=== PATIENT | male | born 1960 | race Caucasian/White ===

== ENCOUNTER 2025-05-30 16:24 | Inpatient (IN) ==
[2025-05-30 17:00] LABS: Hematocrit (blood only) 40.9 % (42.0-52.0); Hemoglobin 13.0 g/dl (14.0-18.0); Immature Granulocytes # (auto) 0.02 K/uL (0.01-0.20); Immature Granulocytes % (auto) 0.3 %; Mean Corpuscular Hemoglobin 29.9 pg (25.0-34.0); Mean Corpuscular Volume 94.0 fL (80.0-100.0); Platelet Count 197 K/uL (130-400); RDW Standard Deviation 54.5 fL (36.4-46.3); Red Blood Count 4.35 M/uL (4.70-6.10); White Blood Count 7.21 K/ul (4.8-10.8)
[2025-05-30 17:25] LABS: Alanine Aminotransferase 11.0 U/L (7-52); Albumin Globulin Ratio 1.1 (0.9-2); Alkaline Phosphatase 82.0 U/L (34-104); Anion Gap 8.0 (3-11); Bilirubin,Total 0.8 mg/dl (0.2-1.0); Blood Urea Nitrogen 19.0 mg/dl (6-23); Calcium 9.3 mg/dl (8.6-10.3); Carbon Dioxide 29.0 mmol/L (21-32); Chloride 104.0 mmol/L (98-107); Creatinine Clr Calc Pharmacy 88.6 ml/min; Globulin 3.7 gm/dl (2.5-4.0); Glucose 87.0 mg/dl (70-99(Fasting)); Potassium 4.0 mmol/L (3.5-5.1); Sodium 141.0 mmol/L (136-145); Total Protein 7.9 gm/dl (6.0-8.3)
--- NOTE | 2025-05-30 17:30 | XRay Report ---
Chest radiograph, one view History: Chest pain Comparison: 03/28/2025 Findings: Single AP view of the chest performed. No focal consolidation or pleural effusion. No pneumothorax. The cardiac silhouette is enlarged. There is increased prominence of the pulmonary vascularity. No evidence for lymphadenopathy. No visualized bony or soft tissue abnormality. Impression: Cardiomegaly. Increased prominence of the pulmonary vascularity suggesting pulmonary venous hypertension. Electronically signed by Hermes Montaño 05-30-2025 5:30 PM
[2025-05-30] MEDS: ASPIRIN 81 MG CHEW PO STA (18:10)
[2025-05-30] MEDS: FUROSEMIDE 40 MG/4 ML VIAL IV ONE (18:10)
--- NOTE | 2025-05-30 18:51 | Emergency Department Note ---
History of Present Illness General Chief Complaint: Abnormal Labs/Diagnostic Testing Stated Complaint: HEART PROBLEM, ABNORMAL LABS Time Seen by Provider: 05/30/25 16:51 History of Present Illness Provider Complaint: shortness of breath Onset (ago): week(s) (3) Consistency/Duration: + progressively worsening Maximum Pain Intensity: 0 Relieved By: + upright position Exacerbated By: + lying flat Associated symptoms: + orthopnea; no chest pain, no fever, no wheezing, no sputum production or no hemoptysis Home Medications Medication Instructions Recorded Confirmed Type acetaminophen 500 mg tablet 1,500 mg PO DIRECTED PRN Pain 05/30/25 05/30/25 History (Tylenol Extra Strength) albuterol sulfate 2.5 mg/3 mL 2.5 mg inhalation DIRECTED PRN 05/30/25 05/30/25 History (0.083 %) solution for nebulization Shortness Of Breath Or Wheezing celecoxib 200 mg capsule 200 mg PO DAILY 05/30/25 05/30/25 History folic acid 1 mg tablet 2 mg PO DAILY 05/30/25 05/30/25 History furosemide 20 mg tablet 20 mg PO DAILY 05/30/25 05/30/25 History ginkgo biloba 40 mg tablet 40 mg PO DAILY 05/30/25 05/30/25 History levothyroxine 100 mcg tablet 300 mcg PO DAILYBB 05/30/25 05/30/25 History levothyroxine 25 mcg tablet 25 mcg PO DAILYBB 05/30/25 05/30/25 History methotrexate sodium 2.5 mg tablet 17.5 mg PO WK 05/30/25 05/30/25 History turmeric 400 mg capsule 400 mg PO DAILY 05/30/25 05/30/25 History Allergies Allergy/AdvReac Type Severity Reaction Status Date / Time No Known Allergies Allergy Verified 05/30/25 18:29 Past Med/Surg History Problem List (Updated 05/30/25 @ 18:51 by Estuardo Moore MD) CHF exacerbation (Acute) Rheumatoid arthritis (Chronic) Hypothyroidism (Chronic) Acute blood loss anemia Acute respiratory failure Fever Leukocytosis Melena SOB (shortness of breath) Social History Smoking Status: Never smoker Preferred Language: Yoruba Feels Safe at Home: Yes Physical Exam 2 Vital Signs: Vital Signs - 24 hr 05/30/25 16:30 05/30/25 17:00 05/30/25 17:00 Temperature 36.9 C Temperature Source Temporal Artery Sc an Pulse Rate 94 H Pulse Rate from Sp O2 Sensor Respiratory Rate 18 Respiratory Effort / Characteristics Non-Labored Sponta neous Respiratory Depth Normal Respiratory Patter n Regular Blood Pressure 157/94 H 155/101 H 155/101 H Blood Pressure Sisi n 115 123 123 Pulse Oximetry 98 Oxygen Delivery Me thod Room Air Sepsis Recent Feve r Within 48 Hours No Sepsis New/Unexpla ined Change in Men anibal Status N/A Sepsis Action Take n by Nursing No Action Required 05/30/25 17:02 05/30/25 17:02 05/30/25 17:03 Temperature Temperature Source Pulse Rate 93 H 92 H Pulse Rate from Sp O2 Sensor 94 H Respiratory Rate 16 41 H Respiratory Effort / Characteristics Respiratory Depth Respiratory Patter n Blood Pressure Blood Pressure Sisi n Pulse Oximetry 97 97 100 Oxygen Delivery Me thod Room Air Room Air Sepsis Recent Feve r Within 48 Hours Sepsis New/Unexpla ined Change in Men anibal Status Sepsis Action Take n by Nursing 05/30/25 17:12 05/30/25 17:15 05/30/25 17:26 Temperature Temperature Source Pulse Rate 87 85 99 H Pulse Rate from Sp O2 Sensor 92 H 89 Respiratory Rate 35 H 31 H Respiratory Effort / Characteristics Respiratory Depth Respiratory Patter n Blood Pressure Blood Pressure Sisi n Pulse Oximetry 98 99 Oxygen Delivery Me thod Sepsis Recent Feve r Within 48 Hours Sepsis New/Unexpla ined Change in Men anibal Status Sepsis Action Take n by Nursing 05/30/25 17:30 05/30/25 17:30 05/30/25 17:30 Temperature Temperature Source Pulse Rate Pulse Rate from Sp O2 Sensor Respiratory Rate Respiratory Effort / Characteristics Respiratory Depth Respiratory Patter n Blood Pressure 132/90 132/90 132/90 Blood Pressure Sisi n 99 99 99 Pulse Oximetry Oxygen Delivery Me thod Sepsis Recent Feve r Within 48 Hours Sepsis New/Unexpla ined Change in Men anibal Status Sepsis Action Take n by Nursing 05/30/25 17:33 05/30/25 17:48 05/30/25 17:54 Temperature Temperature Source Pulse Rate 82 85 84 Pulse Rate from Sp O2 Sensor 84 86 86 Respiratory Rate 35 H 18 28 H Respiratory Effort / Characteristics Respiratory Depth Respiratory Patter n Blood Pressure Blood Pressure Sisi n Pulse Oximetry 98 99 98 Oxygen Delivery Me thod Sepsis Recent Feve r Within 48 Hours Sepsis New/Unexpla ined Change in Men anibal Status Sepsis Action Take n by Nursing 05/30/25 18:06 05/30/25 18:27 05/30/25 18:31 Temperature Temperature Source Pulse Rate 80 88 Pulse Rate from Sp O2 Sensor 78 82 Respiratory Rate 22 29 H Respiratory Effort / Characteristics Respiratory Depth Respiratory Patter n Blood Pressure 126/87 154/100 H Blood Pressure Sisi n 100 127 Pulse Oximetry 98 99 Oxygen Delivery Me thod Room Air Sepsis Recent Feve r Within 48 Hours Sepsis New/Unexpla ined Change in Men anibal Status Sepsis Action Take n by Nursing 05/30/25 18:31 Temperature Temperature Source Pulse Rate Pulse Rate from Sp O2 Sensor Respiratory Rate Respiratory Effort / Characteristics Respiratory Depth Respiratory Patter n Blood Pressure 154/100 H Blood Pressure Sisi n 127 Pulse Oximetry Oxygen Delivery Me thod Sepsis Recent Feve r Within 48 Hours Sepsis New/Unexpla ined Change in Men anibal Status Sepsis Action Take n by Nursing Physical Exam: Physical Exam GENERAL: oriented to person, place, and time. appears well-developed and well- nourished. HENT: Exam performed. - Head: Normocephalic and atraumatic. EYES: Conjunctivae and EOM are normal. Right eye exhibits no discharge. Left eye exhibits no discharge. No scleral icterus. NECK: Normal range of motion. Neck supple. No JVD present. CV: Normal rate, regular rhythm, normal heart sounds and intact distal pulses. 2+ pitting edema of the bilateral lower extremities. Palpable radial pulses bue. PULM/CHEST: Effort normal and breath sounds normal. No respiratory distress. No stridor. no wheezes. no rales. ABD: The abdomen is soft. There is no tenderness. NEURO: Motor and sensation grossly intact. SKIN: Skin is warm and dry. He is not diaphoretic. PSYCH: normal mood and affect. Behavior is normal. Judgment and thought content normal. Course Course 1650: The patient was evaluated in room B5. A complete history and physical exam was performed Cardiac monitoring: An order was placed for continuous cardiac monitoring. The monitor shows a rate of 90 with sinus rhythm interpreted by me 1727: Vital signs stable. Discussed case with the patient's referring political research scientist Dr. Lazar. Dr. Lazar states the patient had an echocardiogram done recently which showed an ejection fraction of 20% with mitral regurgitation and cardiomyopathy. She states that the patient has a new right bundle branch block. She recommends inpatient admission and diuresis. 1805: Vital signs stable. Labs show an elevated troponin and proBNP. Chest x- ray shows cardiomegaly with cephalization. Patient be treated with Lasix and admitted as recommended by Dr. Lazar. Administered Medications Discontinued Medications Aspirin (Aspirin 81 Mg Chew) 324 mg PO NOW STA Stop: 05/30/25 18:07 Last Admin: 05/30/25 18:10 Dose: 324 mg Documented By: QING Furosemide (Furosemide 40 Mg/4 Ml Vial) 40 mg IV ONE ONE Stop: 05/30/25 18:06 Last Admin: 05/30/25 18:10 Dose: 40 mg Documented By: QING Medical Decision Making Laboratory Data Attestation: I reviewed the patient's lab results. 05/30/25 16:34 05/30/25 16:34 Lab Results 05/30/25 05/30/25 Range/Units 16:34 16:40 WBC 7.21 (4.8-10.8) K/ul RBC 4.35 L (4.70-6.10) M/uL Hgb 13.0 L (14.0-18.0) g/dl Hct 40.9 L (42.0-52.0) % MCV 94.0 (80.0-100.0) fL MCH 29.9 (25.0-34.0) pg MCHC 31.8 L (32.0-36.0) g/dL RDW Std Deviation 54.5 H (36.4-46.3) fL RDW Coeff of Renan 15.9 H (11.5-14.5) % Plt Count 197 (130-400) K/uL MPV 9.5 (9.4-12.4) fL Immature Gran % (Auto) 0.3 % Neut % (Auto) 75.5 % Lymph % (Auto) 15.0 % [place] % (Auto) 7.4 % Eos % (Auto) 1.5 % Baso % (Auto) 0.3 % Neut # (Auto) 5.45 (1.40-6.50) K/uL Lymph # (Auto) 1.08 L (1.20-3.40) K/uL [place] # (Auto) 0.53 (0.11-0.59) K/uL Eos # (Auto) 0.11 (0.00-0.50) K/uL Baso # (Auto) 0.02 (0.00-0.20) K/uL Immature Gran # (Auto) 0.02 (0.01-0.20) K/uL PT Cancelled INR Cancelled APTT Cancelled PTT Ratio Cancelled Sodium 141 (136-145) mmol/L Potassium 4.0 (3.5-5.1) mmol/L Chloride 104 (98-107) mmol/L Carbon Dioxide 29 (21-32) mmol/L Anion Gap 8 (3-11) BUN 19 (6-23) mg/dl Creatinine 0.97 (0.6-1.4) mg/dl Est Cr Clr Drug Dosing 88.6 ml/min eGFR 86.63 BUN/Creatinine Ratio 19.6 (10-20) Glucose 87 (70-99(Fasting)) mg/dl Calcium 9.3 (8.6-10.3) mg/dl Total Bilirubin 0.8 (0.2-1.0) mg/dl AST 17 (13-39) U/L ALT 11 (7-52) U/L Alkaline Phosphatase 82 (34-104) U/L Troponin I High Sens 39.7 H (0-20) pg/ml B-Natriuretic Peptide 630 H (0-100) pg/ml Total Protein 7.9 (6.0-8.3) gm/dl Albumin 4.2 (3.4-5.0) gm/dl Globulin 3.7 (2.5-4.0) gm/dl Albumin/Globulin Ratio 1.1 (0.9-2) Imaging Data Attestation: I personally reviewed and interpreted this imaging study as follows: My Impression: Chest x-ray: Cardiomegaly with cephalization Radiologist's Impression: Chest X-Ray 05/30/25 16:34 Chest radiograph, one view History: Chest pain Comparison: 03/28/2025 Findings: Single AP view of the chest performed. No focal consolidation or pleural effusion. No pneumothorax. The cardiac silhouette is enlarged. There is increased prominence of the pulmonary vascularity. No evidence for lymphadenopathy. No visualized bony or soft tissue abnormality. Impression: Cardiomegaly. Increased prominence of the pulmonary vascularity suggesting pulmonary venous hypertension. Electronically signed by Montaño Poloanthony 05-30-2025 5:30 PM ECG Data Attestation: I personally reviewed and interpreted this ECG as follows: Interpretation: Sinus rhythm with a rate of 91. NE 218 QRS [address] elevation or ST depression. Right bundle branch block present. [facility] Narrative 1651: The patient was evaluated in room B5. A complete history and physical exam was performed Cardiac monitoring: An order was placed for continuous cardiac monitoring. The monitor shows a rate of 90 with sinus rhythm interpreted by me 1727: Vital signs stable. Discussed case with the patient's referring political research scientist Dr. Lazar. Dr. Lazar states the patient had an echocardiogram done recently which showed an ejection fraction of 20% with mitral regurgitation and cardiomyopathy. She states that the patient has a new right bundle branch block. She recommends inpatient admission and diuresis. 180: Vital signs stable. Labs show an elevated troponin and proBNP. Chest x- ray shows cardiomegaly with cephalization. Patient be treated with Lasix and admitted as recommended by Dr. Lazar. Impression & Plan CHF exacerbation Discharge Plan Visit Data Chief Complaint: Abnormal Labs/Diagnostic Testing Stated Complaint: HEART PROBLEM, ABNORMAL LABS ED Provider: Estuardo Moore Discharge Problem: CHF exacerbation Patient Disposition: Admitted As Inpatient Condition: Fair Forms Stand Alone Forms: [facility] [place] [employer] Prescriptions Prescriptions: No Action acetaminophen [Tylenol Extra Strength] 500 mg Tablet 1,500 mg PO DIRECTED PRN (Reason: Pain) ginkgo biloba [Ginkoba] 40 mg Tablet 40 mg PO DAILY Rx Instructions: give with meal/snack turmeric 400 mg Capsule 400 mg PO DAILY celecoxib 200 mg capsule 200 mg PO DAILY albuterol sulfate 2.5 mg /3 mL (0.083 %) solution for nebulization 2.5 mg inhalation DIRECTED PRN (Reason: Shortness Of Breath Or Wheezing) levothyroxine 25 mcg tablet 25 mcg PO DAILYBB Rx Instructions: TOTAL DOSE 325 MCG--TAKES WITH 3-100 MCG TABS. levothyroxine 100 mcg tablet 300 mcg PO DAILYBB Rx Instructions: TOTAL DOSE 325 MCG--TAKES WITH 25 MCG TAB. methotrexate sodium 2.5 mg tablet 17.5 mg PO WK Rx Instructions: SUNDAYS folic acid 1 mg tablet 2 mg PO DAILY furosemide 20 mg tablet 20 mg PO DAILY Referrals Referrals: Trisha Horvath MD [Primary Care Provider] -
[2025-05-30 18:59] LABS: INR 1.1 (0.9-1.1); Partial Thromboplastin Time 34 Seconds (21-31); Prothrombin Time 11.5 Seconds (9.0-12.0)
--- NOTE | 2025-05-30 18:59 | History & Physical Report ---
Date of Service May 30, 2025 Assessment & Plan (1) Acute systolic CHF (congestive heart failure): Plan: Parenteral Lasix diuresis. Cardiology consultation. Telemetry. Serial chest x-ray (2) Left ventricular dysfunction: Plan: As seen on outpatient cardiac echo. Telemetry. Cardiology consultation. (3) Troponin level elevated: Plan: Probably related to CHF. He denies chest pain. No acute EKG changes (4) Hypothyroidism: Plan: Stable. Continue thyroid replacement (5) Rheumatoid arthritis: Plan: Stable. Continue current medical management Plan Hopeful discharge to home later this week History of Present Illness Chief Complaint: Shortness of breath Primary Care Provider: Trisha Horvath MD 65-year-old white male with gradual onset of shortness of breath with exertion and orthopnea. He underwent cardiac echo on an outpatient basis and was seen to have left ventricular systolic dysfunction along with congestive heart failure and sent to the hospital for admission. He denies chest pain. EKG reveals no acute changes. BNP is elevated and initial troponin is mildly elevated. IV Lasix has been started and he is admitted for further evaluation and treatment along with cardiology evaluation. Allergies Allergy/AdvReac Type Severity Reaction Status Date / Time No Known Allergies Allergy Verified 05/30/25 18:29 Home Medications Medication Instructions Recorded Confirmed Type acetaminophen 500 mg tablet 1,500 mg PO DIRECTED PRN Pain 05/30/25 05/30/25 History (Tylenol Extra Strength) albuterol sulfate 2.5 mg/3 mL 2.5 mg inhalation DIRECTED PRN 05/30/25 05/30/25 History (0.083 %) solution for nebulization Shortness Of Breath Or Wheezing celecoxib 200 mg capsule 200 mg PO DAILY 05/30/25 05/30/25 History folic acid 1 mg tablet 2 mg PO DAILY 05/30/25 05/30/25 History furosemide 20 mg tablet 20 mg PO DAILY 05/30/25 05/30/25 History ginkgo biloba 40 mg tablet 40 mg PO DAILY 05/30/25 05/30/25 History levothyroxine 100 mcg tablet 300 mcg PO DAILYBB 05/30/25 05/30/25 History levothyroxine 25 mcg tablet 25 mcg PO DAILYBB 05/30/25 05/30/25 History methotrexate sodium 2.5 mg tablet 17.5 mg PO WK 05/30/25 05/30/25 History turmeric 400 mg capsule 400 mg PO DAILY 05/30/25 05/30/25 History Past Med/Surg History Problem List (Updated 05/30/25 @ 18:58 by Dung Keating MD) Acute systolic CHF (congestive heart failure) Troponin level elevated Left ventricular dysfunction Acute diastolic (congestive) heart failure CHF exacerbation (Acute) Rheumatoid arthritis (Chronic) Hypothyroidism (Chronic) Acute blood loss anemia Acute respiratory failure Fever Leukocytosis Melena SOB (shortness of breath) Social History Smoking Status: Never smoker Preferred Language: Swazi Feels Safe at Home: Yes Review of Systems 2 Review of Systems: Constitutionalno fever or chills ENTno blurred vision, no double vision, no epistaxis, no sore throat Respiratoryno cough, no wheezing. Dyspnea on exertion Cardiacno palpitations, no chest pain, no syncope Karmen nausea, vomiting, diarrhea, melena, hematochezia GUno urinary retention, no urinary incontinence, no dysuria, no hematuria Musculoskeletalno joint pain, no muscle tenderness Skinno bruising, no rashes, no pruritus Neurono isolated weakness, no paresthesia, no weakness Psychno depression, no anxiety Physical Exam 2 Physical Exam: General-alert and oriented x3, no fever, no chills HEENT-head atraumatic and normocephalic, pupils equal and reactive to light, extraocular muscles intact Neck-no lymphadenopathy or thyromegaly, trachea midline Chest-bibasilar inspiratory rales. No wheezing. No rhonchi. Cardiac-regular rate and rhythm, normal S1 and S2 Abdomen-normal bowel sounds, no hepatosplenomegaly Extremities-no cyanosis, clubbing, or edema Neuro-cranial nerves II through XII intact, motor and sensory function within normal limits, strength symmetrical, no focal deficits Psych-normal affect, normal mood Results & Data Results & Data Vital Signs (Past 12 Hours) Vital Signs Temp Pulse Resp BP Pulse Ox O2 Del Method 05/30/25 18:31 154/100 H 05/30/25 18:31 154/100 H 05/30/25 18:27 88 29 H 99 05/30/25 18:06 80 22 126/87 98 Room Air 05/30/25 17:54 84 28 H 98 05/30/25 17:48 85 18 99 05/30/25 17:33 82 35 H 98 05/30/25 17:30 132/90 05/30/25 17:30 132/90 05/30/25 17:30 132/90 05/30/25 17:26 99 H 05/30/25 17:15 85 31 H 99 05/30/25 17:12 87 35 H 98 05/30/25 17:03 92 H 41 H 100 05/30/25 17:02 93 H 16 97 Room Air 05/30/25 17:02 97 Room Air 05/30/25 17:00 155/101 H 05/30/25 17:00 155/101 H 05/30/25 16:30 36.9 C 94 H 18 157/94 H 98 Room Air Laboratory Results 05/30/25 16:34 05/30/25 16:34 Code Status & VTE Plan Code Status Full code PG Care Time/CCT Total # of Minutes Spent Total Time Spent with Patient: Total time spent is greater than 50% in coordination of care (as documented) at patient's floor/unit and/or counseling patient: Coding Level of Care Code 99022 INT INP/OBS CARE 3/75MIN Diagnoses Acute systolic CHF (congestive heart failure) I50.21 Left ventricular dysfunction I51.9 Troponin level elevated R79.89 Hypothyroidism E03.9 Rheumatoid arthritis M06.9
[2025-05-30] MEDS ORDERED: ONDANSETRON INJ 2 MG/ML 2 ML VIAL IV PRN (21:45)
[2025-05-30] MEDS: HEPARIN SOD 5,000 UNIT/0.5 ML VIAL SQ SCH (22:12)
[2025-05-30] MEDS: FUROSEMIDE 40 MG/4 ML VIAL IV SCH (22:12)
[2025-05-30] MEDS ORDERED: 0.2 MICRON FILTER SET 1 EACH IV ONE (22:44)
--- NOTE | 2025-05-30 22:55 | Communication Note ---
Date of Service: May 30, 2025 Nurse alerted me around 22:20 about pt rhythm change. EKG ordered; afib RVR noted. Went tot bedside to assess pt. He states he has been having sporadic epi sodes of anxiety and shortness of breath at home for at least the last few months and states that this episode feels similar to the episodes he gets at home. He states he 'maybe" had a hx of afib after his first heart attack and states he thinks he was on coumadin for a time but has not been on that in years. Pt denies chest pain or SOB at present but does note some sudden anxiety which seem to correspond time-oneil with when he converted into afib on telemetry. BP stable, rates 130-140s. On auscultation, pt is in irregularly irregular rhythm. Pt already on heparin. Given report of low EF and CHF (which is what pt was admitted for), will do a dose of amiodarone for permissive rate control. Electrolytes reviewed; k 4.0 earlier today. Will add mag level with repeat trop and will trend troponin throughout the night until it peaks. Resident Activity Tracking Resident Involvement: Resident Care Provided Care Provided: Adult Hospital Medicine
[2025-05-30] MEDS: AMIODARONE / D5W 150 MG/100 ML BAG IV STA (23:00)
[2025-05-30 23:25] LABS: Magnesium 1.9 mg/dl (1.7-2.4)
[2025-05-31] MEDS ORDERED: 0.2 MICRON FILTER SET 1 EACH IV ONE (01:27)
[2025-05-31] MEDS: AMIODARONE / D5W 150 MG/100 ML BAG IV STA ×2 (01:34→06:21)
[2025-05-31] MEDS: ACETAMINOPHEN 325 MG TAB PO PRN (01:42)
[2025-05-31 04:15] LABS: Anion Gap 7.0 (3-11); Blood Urea Nitrogen 20.0 mg/dl (6-23); Calcium 9.2 mg/dl (8.6-10.3); Carbon Dioxide 29.0 mmol/L (21-32); Chloride 103.0 mmol/L (98-107); Creatinine Clr Calc Pharmacy 82.0 ml/min; Glucose 102.0 mg/dl (70-99(Fasting)); Potassium 3.9 mmol/L (3.5-5.1); Sodium 139.0 mmol/L (136-145)
[2025-05-31] MEDS ORDERED: STAT IV Infusion **Titration per Protocol STA (05:58)
[2025-05-31] MEDS ORDERED: 0.2 MICRON FILTER SET 1 EACH IV STA (05:58)
[2025-05-31] MEDS ORDERED: AMIODARONE IV BOLUS & DRIP IV STA (05:58)
[2025-05-31] MEDS: LEVOTHYROXINE SODIUM 150 MCG TABLET PO SCH (06:16)
[2025-05-31] MEDS: LEVOTHYROXINE SODIUM 25 MCG TABLET PO SCH (06:16)
[2025-05-31] MEDS: AMIODARONE / D5W 360 MG/200 ML BAG IV ONE (06:32)
[2025-05-31] MEDS: CeleBREX 200 MG CAP PO SCH (07:38)
[2025-05-31] MEDS: FOLIC ACID 1 MG TAB PO SCH (07:38)
[2025-05-31 09:28] LABS: Thyroid Stimulating Hormone 0.017 uIu/ml (0.300-4.500)
[2025-05-31] MEDS: HEPARIN SOD (PORCINE) 1000 UNIT/ML IV ONE (10:02)
[2025-05-31] MEDS: HEPARIN 25000 UNIT/500 ML D5W 25,000 UNITS/500 ML BAG IV SCH (10:03)
[2025-05-31] MEDS: Heparin IV Adult Wt-Based Standard w/ INITIAL Bolus Protocol IV STA (10:04)
--- NOTE | 2025-05-31 10:34 | Cardiology Consultation ---
Date of Consultation May 31, 2025 Assessment & Plan (1) Acute systolic CHF (congestive heart failure): (2) Troponin level elevated: (3) Coronary artery disease: Plan It's possible that Mr. Mcqueen has been coming and going in afib for some time with poorly controlled rates contributing to his reduced EF. He was started on amiodarone last night which he should continue. I've started him on a heparin drip for now. He'll need to be placed on a DOAC prior to discharge. His rates are still tachycardic and I will add metoprolol to his po medications. He has mildly elevated troponin which peaked at 90 and may just be secondary to demand ischemia secondary to his rapid rate. He is not having any angina. However, given his severely reduced EF and multiple wall motion abnormalities, he should be cathed. Idiscussed the risk benefits of cardiac catheterization.Risks including but not limited tobleeding or infection at the puncture site, damage to the patient's radial or femoral artery,risk of contrast-induced nephropathy, allergic reaction to contrastand aone in ten thousand risk of heart attack, stroke, or . The patient understands the risksand wishes to proceed. I have placed a consult for Dr. Mon. He will need to have GDMT maximized and if no improvement in his EF, he would likely benefit from a BiV/ICD. Once he is better diuresed, he should be started on Entresto. IV furosemide should be continued until his creat bumps. His blood pressure is controlled. 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 Yesterday he came in to establish with Dr. Lazar for cough and shortness of breath and recent echocardiogram demonstrating an ejection fraction of 20%. He has a history of cardiomyopathy and heat failure with an EF of 30%, improved to 40% in 2017. He has a history of prior [place], presumably LAD, in 2012 treated at [facility] which was his last cardiac catheterization. Since then he has only been taking aspirin, Lasix, and thyroid medication. About 2 months ago he demonstrated a wide bundle branch block on his EKG. He does have a history of A-fib diagnosed in 2016 when sick with pneumonia. He was on anticoagulation but subsequently had a GI bleed that year. EGD at the time showed only esophagitis and hiatal hernia. AC was stopped. He started feeling short of breath about 2 months ago. He feels a lot of distention in his belly and lost 40-50 pounds in that time because he just had no appetite due to the belly pressure. Not much edema in his lower extremities. No chest discomfort. He cannot feel being afib. Pmhx: CAD, systolic heart failure, GI bleed, hld, Family: Mother with history of TN, mother and sister with htn and diabetes Allergies Allergy/AdvReac Type Severity Reaction Status Date / Time No Known Allergies Allergy Verified 05/30/25 18:29 Home Medications Medication Instructions Recorded Confirmed Type acetaminophen 500 mg tablet 1,500 mg PO DIRECTED PRN Pain 05/30/25 05/30/25 History (Tylenol Extra Strength) albuterol sulfate 2.5 mg/3 mL 2.5 mg inhalation DIRECTED PRN 05/30/25 05/30/25 History (0.083 %) solution for nebulization Shortness Of Breath Or Wheezing celecoxib 200 mg capsule 200 mg PO DAILY 05/30/25 05/30/25 History folic acid 1 mg tablet 2 mg PO DAILY 05/30/25 05/30/25 History furosemide 20 mg tablet 20 mg PO DAILY 05/30/25 05/30/25 History ginkgo biloba 40 mg tablet 40 mg PO DAILY 05/30/25 05/30/25 History levothyroxine 100 mcg tablet 300 mcg PO DAILYBB 05/30/25 05/30/25 History levothyroxine 25 mcg tablet 25 mcg PO DAILYBB 05/30/25 05/30/25 History methotrexate sodium 2.5 mg tablet 17.5 mg PO WK 05/30/25 05/30/25 History turmeric 400 mg capsule 400 mg PO DAILY 05/30/25 05/30/25 History Patient History Social History Smoking Status: Never smoker Hx Alcohol Use: No Hx Substance Use: No Preferred Language: Japanese Communication Ability: Effective Security Shift Supervisor Required: No Beliefs That Will Affect Care: None Current Living Situation: Significant Other Feels Safe at Home: Yes Assistive Devices: None Review of Systems Review of Systems: All systems reviewed & are unremarkable except as noted in HPI & below Physical Exam Constitutional: WD/WN, vitals as above Respiratory: normal respiratory effort, lungs clear to auscultation Cardiovascular: Rate/Rhythm: + abnormal rate and + abnormal rhythm Heart Sounds: normal S1 and normal S2 Extremities: + edema (trace lower extremity) Skin: no rashes, warm and dry Neurologic: moves all extremities and awake Psychiatric: A+Ox3, euthymic affect Results & Data Vital Signs (Past 12 Hours) Vital Signs Temp Pulse Pulse Pulse Resp BP Pulse Ox 05/31/25 08:00 123 H 05/31/25 07:04 36.4 C L 107 H 24 112/80 98 05/31/25 03:02 36.5 C 85 17 108/73 99 05/30/25 22:37 05/30/25 22:36 36.5 C 133 H 22 129/96 96 O2 Del Method 05/31/25 08:00 05/31/25 07:04 Room Air 05/31/25 03:02 Room Air 05/30/25 22:37 Room Air 05/30/25 22:36 Room Air Diagnostic Findings Echo 05/30/2025 at [facility] Summary 1. Technically difficult study due to patient body habitus; Successfully enhanced with Definity contrast per lab protocol for better endocardial definition. 2. Severely dilated left ventricle. 3. Akinesis of the mid to distal anteroseptal, mid to distal anterior, mid to distal anterolateral, mid to distal inferolateral, mid to distal inferior and mid to distal inferoseptal quintero. 4. Hypokinesis of the basal inferoseptal wall. 5. Severely reduced systolic function, ejection fraction calculated by Biplane Cochran's method 20-25%. 6. Mild concentric left ventricular hypertrophy. 7. Grade II diastolic dysfunction of the left ventricle (pseudonormal filling pattern) with elevated left atrial pressure. 8. Moderately dilated right ventricle with reduced systolic function; TAPSE was 0.7 cm. 9. Moderately dilated left atrium size. 10. Dilated right atrium. 11. The prox ascending aorta is dilated measuring 3.8 cm with an index of 1.75 cm/m2. 12. Mildly calcified, trileaflet aortic valve without stenosis. Trace aortic valve insufficiency. 13. Moderate +2-3 mitral valve regurgitation. 14. Mild tricuspid regurgitation. 15. Top normal estimated pulmonary artery pressures, estimated PASP is 33 mmHg. 16. Mild pulmonary regurgitation. 17. Elevated estimated pulmonary arterial mean pressure is 32 mmHg. 18. No prior studies for comparison. (3) Coronary artery disease Associated angina: without angina Coronary Disease-Associated Artery/Lesion type: [place] artery
--- NOTE | 2025-05-31 10:48 | Hospitalist Progress Note ---
Date of Service May 31, 2025 Assessment & Plan (1) Acute systolic CHF (congestive heart failure): Plan: Acute on chronic. Continue parenteral Lasix diuresis. Good diuretic response thus far. Cardiology consultation and recommendations appreciated. He will undergo repeat left heart catheterization tomorrow, June 01. Telemetry. Serial chest x-ray (2) Left ventricular dysfunction: Plan: As seen on outpatient cardiac echo. Ejection fraction is reduced to around 20%. He has a previous history of coronary artery disease and myocardial infarction. Telemetry. (3) Troponin level elevated: Plan: He denies chest pain. No acute EKG changes. Telemetry. Probably related to CHF. (4) Hypothyroidism: Plan: Continue thyroid replacement. Thyroid profile ordered and pending (5) Rheumatoid arthritis: Plan: Stable. Continue current medical management Plan Anticipate eventual discharge to home within the next 2 to 3 days. Admission and Anticipated Discharge Date Admission Date: May 30, 2025 Subjective Alert and oriented. No acute distress. Apparently he developed recurrent atrial fibrillation late last evening and is now on a heparin drip and amiodarone drip. Appreciate cardiology consultation. He will undergo left heart catheterization tomorrow, June 01. His most recent outpatient cardiac echo revealed ejection fraction of approximately 20%. He does have a history of coronary artery disease and previous myocardial infarction along with a history of systolic congestive heart failure. Troponin level is trending upward but still less than 100. He denies chest pain. He will undergo left heart catheterization tomorrow, June 01 Review of Systems 2 Review of Systems: Constitutionalno fever or chills ENTno blurred vision, no double vision, no epistaxis, no sore throat Respiratoryno cough, no wheezing. Dyspnea on exertion Cardiacno palpitations, no chest pain, no syncope Karmen nausea, vomiting, diarrhea, melena, hematochezia GUno urinary retention, no urinary incontinence, no dysuria, no hematuria Musculoskeletalno joint pain, no muscle tenderness Skinno bruising, no rashes, no pruritus Neurono isolated weakness, no paresthesia, no weakness Psychno depression, no anxiety Physical Exam 2 Physical Exam: General-alert and oriented x3, no fever, no chills HEENT-head atraumatic and normocephalic, pupils equal and reactive to light, extraocular muscles intact Neck-no lymphadenopathy or thyromegaly, trachea midline Chest-bibasilar inspiratory rales. No wheezing. No rhonchi. Cardiac-irregular rhythm. Controlled rate. Normal S1 and S2 Abdomen-normal bowel sounds, no hepatosplenomegaly Extremities-no cyanosis, clubbing, or edema Neuro-cranial nerves II through XII intact, motor and sensory function within normal limits, strength symmetrical, no focal deficits Psych-normal affect, normal mood Results & Data Results & Data Vital Signs (Past 12 Hours) Vital Signs Temp Pulse Pulse Pulse Resp BP Pulse Ox 05/31/25 08:00 123 H 05/31/25 07:04 36.4 C L 107 H 24 112/80 98 05/31/25 03:02 36.5 C 85 17 108/73 99 O2 Del Method 05/31/25 08:00 05/31/25 07:04 Room Air 05/31/25 03:02 Room Air Laboratory Results 05/30/25 16:34 05/31/25 03:46 PG Care Time/CCT Total # of Minutes Spent Total Time Spent with Patient: Total time spent is greater than 50% in coordination of care (as documented) at patient's floor/unit and/or counseling patient: Coding Level of Care Code 12431 SUB INP/OBS CARE 3/50MIN Diagnoses Acute systolic CHF (congestive heart failure) I50.21 Left ventricular dysfunction I51.9 Troponin level elevated R79.89 Hypothyroidism E03.9 Rheumatoid arthritis M06.9
[2025-05-31] MEDS: AMIODARONE / D5W 360 MG/200 ML BAG IV SCH (12:00)
[2025-05-31] MEDS: METOPROLOL SUCC 25MG EXT REL TAB PO SCH (12:52)
[2025-05-31 17:19] LABS: ANTI-Xa, UFH(UnfractionatedHep 0.64 IU/ml (0.3-0.7)
[2025-06-01 07:14] LABS: Anion Gap 9.0 (3-11); Blood Urea Nitrogen 26.0 mg/dl (6-23); Calcium 9.2 mg/dl (8.6-10.3); Carbon Dioxide 29.0 mmol/L (21-32); Chloride 99.0 mmol/L (98-107); Creatinine Clr Calc Pharmacy 78.9 ml/min; Glucose 108.0 mg/dl (70-99(Fasting)); Potassium 4.0 mmol/L (3.5-5.1); Sodium 137.0 mmol/L (136-145)
--- NOTE | 2025-06-01 07:29 | XRay Report ---
EXAM: XR chest 1V portable CLINICAL HISTORY: CHF (Congestive heart failure). TECHNIQUE: An X-ray image of the chest is obtained in AP projection. COMPARISON: With the prior study dated 05/30/2025. FINDINGS: Pulmonary Parenchyma: Lungs are clear bilaterally. No evidence of consolidation, collapse, or focal opacities. No pulmonary nodules are identified. No evidence of left pleural effusion or pleural thickening. Blunting of the right costophrenic angle could be due to small effusion. Heart and Mediastinum: Unchanged cardiomegaly. No mediastinal widening or masses. No hilar or mediastinal lymphadenopathy. Bony Thorax: Bony thorax appears intact without fractures or deformities. Soft Tissues: Soft tissues overlying the chest wall are unremarkable. IMPRESSION: 1. Unchanged cardiomegaly. 2. Unchanged blunting of the right costophrenic angle could be due to small effusion. 3. No acute cardiopulmonary abnormalities are identified. Electronically signed by Guillermo Bonilla 06-01-2025 07:28 AM
--- NOTE | 2025-06-01 07:50 | Cardiology Progress Note ---
Date of Service June 01, 2025 Assessment & Plan (1) Acute systolic CHF (congestive heart failure): (2) Troponin level elevated: (3) Coronary artery disease: Plan It's possible that Mr. Mcqueen has been coming and going in afib for some time with poorly controlled rates contributing to his reduced EF. He was started on amiodarone last night which he should continue. I've started him on a heparin drip for now. He'll need to be placed on a DOAC prior to discharge. His rates are still tachycardic and I will add metoprolol to his po medications. He has mildly elevated troponin which peaked at 90 and may just be secondary to demand ischemia secondary to his rapid rate. He is not having any angina. However, given his severely reduced EF and multiple wall motion abnormalities, he should be cathed. Idiscussed the risk benefits of cardiac catheterization.Risks including but not limited tobleeding or infection at the puncture site, damage to the patient's radial or femoral artery,risk of contrast-induced nephropathy, allergic reaction to contrastand aone in ten t housand risk of heart attack, stroke, or . The patient understands the risksand wishes to proceed. I have placed a consult for Dr. Mon. He will need to have GDMT maximized and if no improvement in his EF, he would likely benefit from a BiV/ICD. Once he is better diuresed, he should be started on Entresto. IV furosemide should be continued until his creat bumps. His blood pressure is controlled. Admission and Anticipated Discharge Date Admission Date: May 30, 2025 Subjective Alert and oriented. No acute distress. Apparently he developed recurrent atrial fibrillation late last evening and is now on a heparin drip and amiodarone drip. Appreciate cardiology consultation. His most recent outpatient cardiac echo revealed ejection fraction of approximately 20%. He does have a history of coronary artery disease and previous myocardial infarction along with a history of systolic congestive heart failure. Troponin level is trending upward but still less than 100. He denies chest pain. he is to undergo cardiac catheterization later today depending on the results further recommendations will follow-up Review of Systems Review of Systems: All systems reviewed & are unremarkable except as noted in HPI & below Results & Data Vital Signs (Past 12 Hours) Vital Signs Temp Pulse Pulse Resp BP BP Pulse Ox 06/01/25 07:10 36.6 C 67 18 112/76 99 06/01/25 03:00 36.5 C 92 H 16 116/68 97 05/31/25 23:14 36.3 C L 82 16 114/70 97 05/31/25 22:03 90 O2 Del Method 06/01/25 07:10 Room Air 06/01/25 03:00 Room Air 05/31/25 23:14 Room Air 05/31/25 22:03 Laboratory Results Abnormal lab results 05/31/25 06/01/25 Range/Units 08:36 06:07 BUN 26 H (6-23) mg/dl BUN/Creatinine Ratio 24.1 H (10-20) Glucose 108 H (70-99(Fasting)) mg/dl Troponin I High Sens 84.1 H* (0-20) pg/ml TSH 0.017 L (0.300-4.500) uIu/ml Free T4 2.51 H (0.61-1.60) ng/dl Medications Administered Current Inpatient Medications Acetaminophen (Acetaminophen 325 Mg Tab) 650 mg PO Q6H PRN PRN Reason: Fever or headache Stop: 06/29/25 21:44 Last Admin: 05/31/25 01:42 Dose: 650 mg Aspirin (Aspirin 81 Mg Ectab) 81 mg PO QAM [facility] Stop: 07/01/25 08:59 Folic Acid (Folic Acid 1 Mg Tab) 2 mg PO DAILY JUANA Stop: 06/30/25 08:59 Last Admin: 05/31/25 07:38 Dose: 2 mg Furosemide (Furosemide 40 Mg/4 Ml Vial) 40 mg IV BID JUANA Stop: 06/29/25 21:44 Last Admin: 05/31/25 20:35 Dose: 40 mg Amiodarone HCl/Dextrose (Nexterone / D5w) 360 mg in 200 mls @ 16.667 mls/hr IV .Q12H JUANA Stop: 06/30/25 11:59 Last Admin: 06/01/25 01:07 Dose: 0.5 mg/min, 16.7 mls/hr Heparin Sodium/Dextrose (Heparin 64265 Unit/500 Ml D5w) 25,000 units in 500 mls @ 29 mls/hr IV .[id number] JUANA; Protocol Stop: 06/30/25 08:29 Last Titration: 06/01/25 06:58 Dose: 1,450 units/hr, 29 mls/hr Metoprolol Succinate (Metoprolol Succ 25mg Ext Rel Tab) 25 mg PO QAM [facility] Stop: 06/30/25 12:14 Last Admin: 05/31/25 12:52 Dose: 25 mg Ondansetron HCl (Ondansetron Inj 2 Mg/Ml 2 Ml Vial) 4 mg IV Q4H PRN PRN Reason: Nausea Stop: 06/29/25 21:44 (3) Coronary artery disease Associated angina: without angina Coronary Disease-Associated Artery/Lesion type: [place] artery
[2025-06-01 08:04] LABS: ANTI-Xa, UFH(UnfractionatedHep 0.56 IU/ml (0.3-0.7)
[2025-06-01] MEDS: ASPIRIN 81 MG ECTAB PO SCH (09:25)
[2025-06-01] MEDS: FUROSEMIDE 40 MG TAB PO SCH (10:04)
--- NOTE | 2025-06-01 12:02 | Pre Anesthesia Assessment ---
Date of Service June 01, 2025 Pre Sedation Assessment Vital Signs Temp Pulse Pulse Resp BP BP Pulse Ox 06/01/25 10:30 73 18 138/106 H 99 06/01/25 10:00 69 06/01/25 10:00 06/01/25 07:10 36.6 C 67 18 112/76 99 06/01/25 03:00 36.5 C 92 H 16 116/68 97 05/31/25 23:14 36.3 C L 82 16 114/70 97 05/31/25 22:03 90 05/31/25 19:45 05/31/25 19:05 36.3 C L 87 19 104/74 98 05/31/25 16:00 36.4 C L 95 H 24 101/70 96 05/31/25 15:00 110 H O2 Del Method 06/01/25 10:30 Room Air 06/01/25 10:00 06/01/25 10:00 Room Air 06/01/25 07:10 Room Air 06/01/25 03:00 Room Air 05/31/25 23:14 Room Air 05/31/25 22:03 05/31/25 19:45 Room Air 05/31/25 19:05 Room Air 05/31/25 16:00 Room Air 05/31/25 15:00 Cardiovascular Additional Comments: Irregular rhythm, normal rate. A-fib on monitor. Respiratory normal respiratory effort, lungs clear to auscultation Pre-Sedation Airway Assessment Smoking Status: Never smoker Mallampati 3 ASA 3 Notes The planned sedation has been discussed with the patient. Informed Consent was obtained. I have identified the patient, determined the appropriateness of sedation and have assessed the patient immediately prior to the procedure. All medicine(s) and interventions are by my order.
[2025-06-01] MEDS: MIDAZOLAM HCL 1 MG/ML 2ML VIAL ONE (13:32)
[2025-06-01] MEDS: HEPARIN (PORCINE) 1000 UNIT/ML 10 ML (CATH LAB USE ONLY) ONE ×2 (13:32→13:37)
[2025-06-01] MEDS: NITROGLYCERIN/D5W 100MCG/ML 20ML SYR ONE (13:33)
[2025-06-01] MEDS: niCARdipine 2,000 MCG/20 ML SYR ONE (13:33)
[2025-06-01] MEDS: OPTIRAY 350 ONE (13:34)
[2025-06-01] MEDS: TICAGRELOR 90 MG TAB ONE (13:37)
--- NOTE | 2025-06-01 13:39 | Post Anesthesia Assessment ---
Date of Service June 01, 2025 Post Sedation Assessment Vital Signs Temp Pulse Pulse Resp BP BP Pulse Ox 06/01/25 10:30 73 18 138/106 H 99 06/01/25 10:00 69 06/01/25 10:00 06/01/25 07:10 36.6 C 67 18 112/76 99 06/01/25 03:00 36.5 C 92 H 16 116/68 97 05/31/25 23:14 36.3 C L 82 16 114/70 97 05/31/25 22:03 90 05/31/25 19:45 05/31/25 19:05 36.3 C L 87 19 104/74 98 05/31/25 16:00 36.4 C L 95 H 24 101/70 96 05/31/25 15:00 110 H O2 Del Method 06/01/25 10:30 Room Air 06/01/25 10:00 06/01/25 10:00 Room Air 06/01/25 07:10 Room Air 06/01/25 03:00 Room Air 05/31/25 23:14 Room Air 05/31/25 22:03 05/31/25 19:45 Room Air 05/31/25 19:05 Room Air 05/31/25 16:00 Room Air 05/31/25 15:00 Recovery Score Activity: Moves 4 extremities Respiration: Deep Breath/Cough Circulation: +/-20% PreAnes Value Consciousness: Fully Awake Oxygen Saturation: > 92% On Room Air Discharge Sedation Level of Care: Fast Track Phase II Post Sedation Plan On clinical assessment, the patient appears to have tolerated the sedation without complications. Patient is recovering as anticipated. Patient will continue to be monitored by nursing and may be discharged when sedation discharge criteria are met per below protocol. Upon Completions of procedure up to 15 minutes continue every 5 minute vital signs and the P.A.R. score; then discharge to a Phase I or Fast Track to Phase II per the following guidelines: * Discharge Patient to appropriate Phase II area if PAR is 8 or greater or return to pre- procedure baseline. The post - procedure orders will be as directed. * If PAR score is less than 8 or not return to pre-procedure baseline then patient will follow Phase I monitoring till PAR is reached for Phase II. The Phase I may be done in procedure room or may call to secure a Phase I area. * If naloxone or flumazenil are used for reversal, hold in Phase I for continued monitoring from when last reversal dose was given for a minimum of 60 minutes or longer pending the nurse and/or physician discretion of patient condition before discharge to Phase II. Please call the Sedation Physician to re-evaluate and complete post-note for discharge to Phase II area. Do NOT discharge from procedure sedation or Phase 1 until post- sedation evaluation note is complete by procedure /sedation MD Sedation Discharge Instructions to be given to the patient at discharge to home. [facility] [place] Procedure Codes (Charges) Indication for Procedure Indication for procedure: cardiomyopathy elevated troponin Sedation/Anesthesia Procedure 1: Sedation/Anesthesia: 28784 Mod Sedation by the same physician;Init15 Min Child Age 5 & Up (initial 15 min, start 1253) Total Sedation Time (minutes): 40 Procedure 2: Sedation/Anesthesia: 99072 Mod Sedation by the same physician; Ea [id number] Minutes (additional 25 min, end 1333) Total Sedation Time (minutes): 40
[2025-06-01] MEDS: AMIODARONE 360MG / 200ML D5W (CATH LAB USE ONLY) IV ONE (13:49)
--- NOTE | 2025-06-01 14:33 | Hospitalist Progress Note ---
Date of Service June 01, 2025 Assessment & Plan (1) Acute systolic CHF (congestive heart failure): Plan: Acute on chronic. Resolved with parenteral Lasix diuresis. Chest x-ray done today, June 01, looks good. Lasix has been switched to oral once daily dosing. Cardiology consultation and recommendations appreciated. Telemetry. Serial chest x-ray (2) Left ventricular dysfunction: Plan: As seen on outpatient cardiac echo. Ejection fraction is reduced to around 20%. He has a previous history of coronary artery disease and myocardial infarction. He underwent left heart catheterization today, June 01, and had a distal circumflex artery PCI and stent placed. He is now on Brilinta and heparin drip has been switched to Eliquis. Telemetry. (3) Troponin level elevated: Plan: He denies chest pain. No acute EKG changes. Telemetry. Probably related to CHF. (4) Paroxysmal atrial fibrillation: Plan: Now rate controlled with amiodarone. Amiodarone drip switched to oral dosing. Continue metoprolol. Heparin drip has been switched to Eliquis. Telemetry (5) Hypothyroidism: Plan: He appears to have thyrotoxicosis from excessive oral thyroid intake. Thyroid replacement therapy is currently on hold and will be decreased at the time of discharge. (6) Rheumatoid arthritis: Plan: Stable. Continue current medical management Plan Hopeful discharge to home tomorrow, June 02 Admission and Anticipated Discharge Date Admission Date: May 30, 2025 Subjective The patient was seen after heart catheterization and stenting. He is alert and oriented and chest pain-free. is at the bedside. He is hemodynamically stable. It appears he had a distal circumflex PCI and stent placed. Heparin has been switched to Eliquis and intravenous amiodarone switched to oral dosing. Chest x-ray done earlier today, June 01, reveals resolution of CHF. He is on room air. Diet has been ordered. He has thyrotoxicosis from replacement therapy with elevated free T4 level and suppressed TSH levels. Thyroid medication is currently on hold and dosage will be decreased at discharge. Hopefully he can go home tomorrow, June 02 Review of Systems 2 Review of Systems: Constitutionalno fever or chills ENTno blurred vision, no double vision, no epistaxis, no sore throat Respiratoryno cough, no wheezing. Dyspnea on exertion Cardiacno palpitations, no chest pain, no syncope Karmen nausea, vomiting, diarrhea, melena, hematochezia GUno urinary retention, no urinary incontinence, no dysuria, no hematuria Musculoskeletalno joint pain, no muscle tenderness Skinno bruising, no rashes, no pruritus Neurono isolated weakness, no paresthesia, no weakness Psychno depression, no anxiety Physical Exam 2 Physical Exam: General-alert and oriented x3, no fever, no chills HEENT-head atraumatic and normocephalic, pupils equal and reactive to light, extraocular muscles intact Neck-no lymphadenopathy or thyromegaly, trachea midline Chest-bibasilar inspiratory rales have resolved. No wheezing. No rhonchi. Cardiac-irregular rhythm. Controlled rate. Normal S1 and S2 Abdomen-normal bowel sounds, no hepatosplenomegaly Extremities-no cyanosis, clubbing, or edema. Pressure dressing on the right radial artery wrist site intact with hemostasis Neuro-cranial nerves II through XII intact, motor and sensory function within normal limits, strength symmetrical, no focal deficits Psych-normal affect, normal mood Results & Data Results & Data Vital Signs (Past 12 Hours) Vital Signs Temp Pulse Pulse Resp BP BP Pulse Ox 06/01/25 14:25 36.4 C 57 L 18 122/75 100 06/01/25 14:05 61 123/75 91 06/01/25 13:50 66 131/85 100 06/01/25 10:30 73 18 138/106 H 99 06/01/25 10:00 69 06/01/25 10:00 06/01/25 07:10 36.6 C 67 18 112/76 99 06/01/25 03:00 36.5 C 92 H 16 116/68 97 O2 Del Method 06/01/25 14:25 Room Air 06/01/25 14:05 Room Air 06/01/25 13:50 Room Air 06/01/25 10:30 Room Air 06/01/25 10:00 06/01/25 10:00 Room Air 06/01/25 07:10 Room Air 06/01/25 03:00 Room Air Laboratory Results 05/30/25 16:34 06/01/25 06:07 PG Care Time/CCT Total # of Minutes Spent Total Time Spent with Patient: Total time spent is greater than 50% in coordination of care (as documented) at patient's floor/unit and/or counseling patient: Coding Level of Care Code 33993 SUB INP/OBS CARE 50MIN Diagnoses Acute systolic CHF (congestive heart failure) I50.21 Left ventricular dysfunction I51.9 Troponin level elevated R79.89 Paroxysmal atrial fibrillation I48.0 Hypothyroidism E03.9 Rheumatoid arthritis M06.9
--- NOTE | 2025-06-01 15:54 | Cardiac Catheterization ---
ACC Data: [facility] Cardiac Status Clinical evaluation leading to the procedure CAD Presenation: Non STEMI Anginal Classification: CCS IV (Dyspnea) Heart Failure: NYHA Class: CCS IV Cardiogenic Shock within 24 Hours: No Cardiac Arrest within 24 Hours: No Imaging Studies Past 6 Months: Yes Stress Studies Past 6 Months: No Coronary Anatomy Dominant: Left Left Main (% Stenosis): Normal LAD (% Stenosis): Proximal (20 to 30%), Mid (30%, stent patent) and Distal (L uminal irregularities) D1 (% Stenosis): Normal D2 (% Stenosis): Proximal (50 to 60%) Circumflex (% Stenosis): Proximal (Calcified 30%), Mid (Mild less than 20%) and Distal (Ectasia) OM1 (% Stenosis): Normal OM2 (% Stenosis): Proximal (40 to 50%) OM3 (% Stenosis): Normal L PL1 (% Stenosis): Normal L PDA (% Stenosis): Proximal (95%) RCA (% Stenosis): Normal Diagnostic Physicians Name: Bandar Mon MD, PhD Closure Device Percutaneous Entry Location: Radial Closure Device: Radial Band Recommendations: Medical Therapy and/or Counseling and PCI without planned CABG PCI Indication: PCI for high risk Non-ARIANA Lesion Segment Name: Proximal L-PDA Culprit Artery: Yes Stenosis Prior to Rx (%): 95% Chronic Total Occlusion: No Pre-Procedure STACI Flow: 2 Previously Treated Lesion: No Lesion Complexity: Non-High/Non-C Lesion Length (mm): 8 Thrombus Present: No Bifurcation Lesion: No Guidewire Across Lesion: Yes Cardiac Cath Procedure Full Procedure Date June 01, 2025 Pre-Procedure Diagnosis Pre-Procedure Diagnosis: Non STEMI and Cardiomyopathy AUC Score AUC Score: 08 Post-Procedure Diagnosis Post-Procedure Diagnosis: Severe CAD and Successful PCI Procedure(s) Performed Procedure(s) Performed: Coronary Angiography and Drug Eluting Stent Business Strategist Bandar Mon MD, PhD Estimated Blood Loss Estimated Blood Loss: 10 cc Medication(s) Medication(s): Fentanyl, Heparin, Lidocaine 1%, Nicardipine, Nitroglycerin and Versed Summary of Findings Brief description: Patient was brought to the cardiac catheterization suite where he was shaved and prepped in a sterile fashion. Sedated using IV Versed and fentanyl. Soft tissues of the right wrist were anesthetized using 2 mL of 1% Xylocaine. The right radial artery was accessed with a modified Seldinger technique and a 6 [place] radial artery glide sheath was placed. Patient was provided anticoagulation with IV heparin and antispasmodics including nicardipine and nitroglycerin. All catheters were advanced and exchanged over a 0.035 J-tip wire. Left coronary angiography in orthogonal views with a 5 [place] 4 diagnostic catheter. Right coronary angiography in orthogonal views with a 5 [place] 4 diagnostic catheter. Diagnostic catheters were removed. Decision was made to perform PCI of the left PDA. ACT was checked and additional heparin was provided to maintain therapeutic anticoagulation. This was repeated throughout the case. 6 [place] EBU 3.5 guide catheter was used to engage the left main coronary. BMW reversal guidewire was advanced through the guide catheter and under fluoroscopic guidance was passed distal to the lesion in the left PDA. Lesion was predilated with a 2 oh by 12 mm trek balloon at 14 rod. Balloon was then removed. Unable to deliver a stent. A 6 [place] guide liner support catheter was advanced over the wire into the circumflex. An [place] 2.25 x 15 mm drug-eluting stent was then successfully advanced and positioned across the lesion. It was deployed at 13 rod with a second inflation to 15 rod and a final inflation to 16 rod. Balloon was then removed. Insurance Commissioner angiography was performed. The guide liner and guidewire were removed. Final angiographic evaluation was performed in orthogonal views. The guide catheter was subsequently removed. Radial artery sheath was removed. Hemostasis was obtained using a TR band. Patient was hemodynamically stable and asymptomatic. He was returned to the recovery area. He received 180 mg of Brilinta p.o. while in the [facility]. This ended the case. Coronary angiography findings: IUS-ogdah-xqzlyko vessel bifurcating into LAD and circumflex. It has mild luminal irregularities. MSL-uxhla-ouhnzfp and transapical. Proximal segment with 20 to 30% stenosis. The mid vessel has a previously placed stent which is widely patent extending into the early distal vessel. There is also 30% stenosis in the nonstented portion. Distal LAD has scattered luminal irregularities. LAD gives a large branching, high arising first diagonal which has no significant disease. There is also a large second diagonal which has proximal to mid eccentric 50 to 60% stenosis. LOb-ipmzh-lfnzwgi and dominant vessel. Proximal segment has calcified 30% stenosis. Mid vessel has mild less than 20% stenosis. The distal vessel remains large and has ectasia. Circumflex gives a small OM1 followed by a large branching OM 2. This has proximal 40 to 50% narrowing. Circumflex then gives a medium to large caliber OM 3 which has no disease. He gives an atrial branch which is relatively large and then the distal vessel bifurcates into a large long PDA and a small to medium caliber posterior lateral. PDA has proximal 95% stenosis and STACI II flow beyond the lesion. RCA-this is medium to large caliber and nondominant. No more than mild luminal irregularities. PCI of L-PDA 0% residual stenosis post PCI STACI-3 flow post PCI No evidence of dissection or perforation post PCI Summary: 1. Patent prior LAD stent and severe left PDA disease. The cardiomyopathy is out of proportion to the severity of coronary artery disease. 2. Successful PCI of the left PDA using a single drug-eluting stent. 3. Patient will be on dual antiplatelet therapy utilizing Brilinta 90 mg p.o. twice daily and Eliquis 5 mg p.o. twice daily given his atrial fibrillation. 4. Guideline directed medical therapy for secondary prevention of coronary disease per primary early childhood education instructor. Will include high intensity statin therapy, beta-russell, plus or minus ZURDO inhibitor/ARB. Hemodynamics Rest Ao:: 121/85 mmHg Final Ao: 126/87 mmHg LV: Not performed Recommendations Recommendations: Medical Therapy and/or Counseling and PCI without planned CABG Radiation Exposure (mGy) 2588 mGy, fluoroscopy time 10.9 minutes Contrast (mls) 180 cc Anesthesia 2 mg Versed, 50 mcg fentanyl IV. Procedural Complication(s) None Disposition [facility] Holding/Recovery I attest to the content of the Intraoperative Record and any orders documented therein. Any exceptions are noted below. [facility] Card Cath Procedure Codes Cardiac Catheterization Procedure 1: Cardiovascular Cath Procedures: 05237 Coronaries Moderate Sedation Procedure 1: Sedation/Anesthesia: 60962 Mod Sedation by the same physician;Init15 Min Child Age 5 & Up (Initial 15 minutes, start time 1253) Procedure 2: Sedation/Anesthesia: 05887 Mod Sedation by the same physician; Ea [id number] Minutes (Additional 25 minutes, end time 1333) Stenting Procedure 1: Cardiovascular Stent Procedures: 73901 Perc transcatheter placement of intracoronary stent(s), with ang (L-PDA) PG Care Time/CCT Total # of Minutes Spent Total Time Spent with Patient: Total time spent is greater than 50% in coordination of care (as documented) at patient's floor/unit and/or counseling patient:
[2025-06-01] MEDS: AMIODARONE 200 MG TAB PO SCH (16:33)
[2025-06-01] MEDS: LIDOCAINE 1% LOCAL 20 ML VIAL ONE (19:40)
[2025-06-01] MEDS: TICAGRELOR 90 MG TAB PO SCH (21:26)
[2025-06-01] MEDS: APIXABAN 5 MG TABLET PO SCH (21:26)
[2025-06-02 07:24] LABS: Hematocrit (blood only) 40.5 % (42.0-52.0); Hemoglobin 12.7 g/dl (14.0-18.0); Immature Granulocytes # (auto) 0.04 K/uL (0.01-0.20); Immature Granulocytes % (auto) 0.4 %; Mean Corpuscular Hemoglobin 28.9 pg (25.0-34.0); Mean Corpuscular Volume 92.3 fL (80.0-100.0); Platelet Count 192 K/uL (130-400); RDW Standard Deviation 53.0 fL (36.4-46.3); Red Blood Count 4.39 M/uL (4.70-6.10); White Blood Count 9.77 K/ul (4.8-10.8)
--- NOTE | 2025-06-02 07:24 | Cardiology Progress Note ---
Date of Service June 02, 2025 Assessment & Plan (1) Heart failure with reduced ejection fraction: (2) Paroxysmal atrial fibrillation: (3) Coronary artery disease: Plan: status post circumflex stent (4) Troponin level elevated: Plan: Congestive heart failure symptoms as well as the A-fib with RVR suspect his slight troponin elevation is more likely related to the as opposed to a true WA (5) Hypothyroidism: Plan: His TSH is 0.017 at the time of admission. We need to cut back on the dose of his Synthroid. His TSH will need to be followed while he is on amiodarone Plan From my standpoint he can be discharged today on Eliquis as well as amiodarone to maintain his heart rhythm. If he remains in persistent A-fib after he is loaded with amiodarone I will consider doing cardioversion on him. When I saw him in the office on Friday he was in normal sinus rhythm so he has been paroxysmal at this point. In addition we need to back off on the dose of his Synthroid and will need to follow his thyroid levels on the amiodarone. I am transitioning him from Brilinta over to clopidogrel given his shortness of breath at night. I am not sure if this was related to the medication versus his chronic orthopnea and paroxysmal nocturnal dyspnea that he has. I suspect it is highly likely that he also has sleep apnea and this should be evaluated as an outpatient by his PCP as well. He was given 300 mg of clopidogrel this morning and will need to start 75 mg of Plavix starting tomorrow. Because he is on NOAC and antiplatelet he should not be on aspirin. For his LV dysfunction he will be maintained on metoprolol which we can titrate up to control his heart rate as well as ARB. I would start him on ideally Entresto but because of the cost of some of his medications he may do better on just starting valsartan 40 mg twice daily for now. He is here to also be mahendra ntained on Lasix. He needs to have a BNP BMP CBC as well as thyroid and liver function test done in about 2 weeks. I will have these done when he sees me in the office in follow-up. If he tolerates the above medicines would also consider starting him on Jardiance or Farxiga for longstanding heart failure prevention. I will do this as an outpatient. He will need to be started on statin for his coronary artery disease. I believe in the past he was on atorvastatin. Admission and Anticipated Discharge Date Admission Date: May 30, 2025 Subjective He underwent his left heart catheterization yesterday without issues. He was noted to have a patent old LAD stent with a left dominant system. He did have a circumflex lesion which Dr. Mon was able to stent. He was started on Brilinta and is now being started on Eliquis for his atrial fibrillation. He does have LV dysfunction and we started him on beta-russell and the plan is to eventually start him on ARB. I discussed with him today that several of his medications are going to be very costly for now we will continue on beta- russell, diuretic, will start valsartan 40 mg twice daily, will continue Eliquis for his atrial fibrillation, his IV amiodarone was transitioned over to p.o. amiodarone. Last evening he had an episode of severe shortness of breath shortly after his Brilinta dose and I am going to load him with Plavix 300 mg this morning and then we will maintain him on 75 mg of Plavix daily. Given his chronic longstanding shortness of breath Brilinta may be a less than optimal antiplatelet medicine to put him on. He will need to have follow-up in the office with me in 2 weeks so that we can titrate medications and recheck labs on him. I suspect that his LV dysfunction is not new and longstanding and he may not have much in the way of improvement is and his ejection fraction. If his EF does not improve on medical therapy, he will qualify for an ICD. We discussed a LifeVest and at this point he is not interested. 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 Review of Systems Review of Systems: All systems reviewed & are unremarkable except as noted in HPI & below Physical Exam Physical Exam: Patient awake alert and oriented. Respiratory: still with rales at the bases Cardiovascular: Heart irregular Results & Data Vital Signs (Past 12 Hours) Vital Signs Temp Pulse Pulse Pulse Resp BP Pulse Ox 06/02/25 03:14 36.3 C L 60 20 104/66 95 06/02/25 03:12 64 06/01/25 23:01 36.6 C 70 20 127/75 97 06/01/25 22:34 69 06/01/25 21:40 67 Pulse Ox O2 Del Method O2 Del Method 06/02/25 03:14 Room Air 06/02/25 03:12 97 Room Air 06/01/25 23:01 Room Air 06/01/25 22:34 06/01/25 21:40 99 Room Air Laboratory Results Abnormal lab results 06/01/25 06/01/25 Range/Units 13:11 13:33 Activ Coag Time Kaolin 205 H 262 H (94-140) SECONDS Medications Administered Current Inpatient Medications Acetaminophen (Acetaminophen 325 Mg Tab) 650 mg PO Q6H PRN PRN Reason: Fever or headache Stop: 06/29/25 21:44 Last Admin: 05/31/25 01:42 Dose: 650 mg Amiodarone HCl (Amiodarone 200 Mg Tab) 200 mg PO BIDM [facility] Stop: 07/01/25 16:59 Last Admin: 06/02/25 09:48 Dose: 200 mg Apixaban (Apixaban 5 Mg Tablet) 5 mg PO BID [facility] Stop: 07/01/25 20:59 Last Admin: 06/02/25 08:51 Dose: 5 mg Folic Acid (Folic Acid 1 Mg Tab) 2 mg PO DAILY [facility] Stop: 06/30/25 08:59 Last Admin: 06/02/25 08:52 Dose: 2 mg Furosemide (Furosemide 40 Mg Tab) 40 mg PO QAM [facility] Stop: 07/01/25 08:59 Last Admin: 06/02/25 08:52 Dose: 40 mg Metoprolol Succinate (Metoprolol Succ 25mg Ext Rel Tab) 25 mg PO QAM [facility] Stop: 06/30/25 12:14 Last Admin: 06/02/25 08:52 Dose: 25 mg Ondansetron HCl (Ondansetron Inj 2 Mg/Ml 2 Ml Vial) 4 mg IV Q4H PRN PRN Reason: Nausea Stop: 06/29/25 21:44 (3) Coronary artery disease Associated angina: without angina Coronary Disease-Associated Artery/Lesion type: igiugig artery
[2025-06-02 07:38] LABS: Anion Gap 10.0 (3-11); Blood Urea Nitrogen 26.0 mg/dl (6-23); Calcium 9.5 mg/dl (8.6-10.3); Carbon Dioxide 29.0 mmol/L (21-32); Chloride 99.0 mmol/L (98-107); Creatinine Clr Calc Pharmacy 78.2 ml/min; Glucose 83.0 mg/dl (70-99(Fasting)); Potassium 3.9 mmol/L (3.5-5.1); Sodium 138.0 mmol/L (136-145)
[2025-06-02 08:00] LABS: ANTI-Xa, UFH(UnfractionatedHep 1.00 IU/ml (0.3-0.7)
--- NOTE | 2025-06-02 09:42 | Electrocardiogram Report ---
Test Reason : Blood Pressure : */* mmHG Vent. Rate : 91 BPM Atrial Rate : 91 BPM P-R Int : 218 ms QRS Dur : 170 ms QT Int : 410 ms P-R-T Axes : 68 254 57 degrees QTcB Int : 504 ms Sinus rhythm with 1st degree A-V block with Premature supraventricular complexes Right bundle branch block Anterolateral infarct (cited on or before 05-Mar-2016) Abnormal ECG When compared with ECG of 27-Mar-2016 02:22, Premature supraventricular complexes are now Present Questionable change in initial forces of Septal leads Questionable change in initial forces of Lateral leads Confirmed by Deborah Resendiz (Ariana) on 06/02/2025 9:42:20 AM Referred By: Trisha Horvath Confirmed By: Deborah Resendiz
--- NOTE | 2025-06-02 09:43 | Electrocardiogram Report ---
Test Reason : Blood Pressure : */* mmHG Vent. Rate : 125 BPM Atrial Rate : * BPM P-R Int : * ms QRS Dur : 164 ms QT Int : 340 ms P-R-T Axes : * 249 54 degrees QTcB Int : 490 ms Atrial fibrillation with rapid ventricular response Right bundle branch block Anterolateral infarct (cited on or before 05-Mar-2016) Abnormal ECG When compared with ECG of 30-May-2025 22:28, (unconfirmed) No significant change was found Confirmed by Deborah Resendiz ([id number]) on 06/02/2025 9:42:58 AM Referred By: Trisha Horvath Confirmed By: Deborah Resendiz
--- NOTE | 2025-06-02 09:43 | Electrocardiogram Report ---
Test Reason : Blood Pressure : */* mmHG Vent. Rate : 137 BPM Atrial Rate : * BPM P-R Int : * ms QRS Dur : 166 ms QT Int : 380 ms P-R-T Axes : * 257 61 degrees QTcB Int : 573 ms Atrial fibrillation with rapid ventricular response Right bundle branch block Anterolateral infarct (cited on or before 05-Mar-2016) Abnormal ECG When compared with ECG of 30-May-2025 16:37, (unconfirmed) Atrial fibrillation has replaced Sinus rhythm Vent. rate has increased by 46 bpm Confirmed by Deborah Resendiz (Ariana) on 06/02/2025 9:42:40 AM Referred By: Trisha Horvath Confirmed By: Deborah Resendiz
--- NOTE | 2025-06-02 09:44 | Electrocardiogram Report ---
Test Reason : Blood Pressure : */* mmHG Vent. Rate : 94 BPM Atrial Rate : * BPM P-R Int : * ms QRS Dur : 176 ms QT Int : 432 ms P-R-T Axes : * 258 57 degrees QTcB Int : 540 ms Atrial fibrillation Right bundle branch block Left anterior fascicular block Anterolateral infarct (cited on or before 05-Mar-2016) Abnormal ECG When compared with ECG of 31-May-2025 05:26, (unconfirmed) T wave inversion more evident in Anterior leads Confirmed by Deborah Resendiz ([id number]) on 06/02/2025 9:43:36 AM Referred By: Trisha Horvath Confirmed By: Deborah Resendiz
[2025-06-02] MEDS: CLOPIDOGREL BISULFATE 300 MG TAB PO ONE (09:48)
--- NOTE | 2025-06-02 11:18 | Discharge Summary ---
Discharge Summary Date of Service June 02, 2025 Principal Dx & Hospital Course #1 = Principal Diagnosis (1) Acute systolic CHF (congestive heart failure): Acute on chronic. Resolved with parenteral Lasix diuresis. Chest x-ray done on June 01 looked good. Lasix has been switched to oral once daily dosing. Cardiology consultation and recommendations appreciated. Telemetry. Serial chest x-ray while hospitalized (2) Left ventricular dysfunction: As seen on outpatient cardiac echo. Ejection fraction is reduced to around 20%. He has a previous history of coronary artery disease and myocardial infarction. He underwent left heart catheterization on June 01 and had a distal circumflex artery PCI and stent placed. Cardiology changed Brilinta to Plavix. Heparin drip has been switched to Eliquis. Telemetry while hospitalized. (3) Troponin level elevated: He denies chest pain. No acute EKG changes. Telemetry. Probably related to CHF. (4) Paroxysmal atrial fibrillation: Now rate controlled with amiodarone. Amiodarone drip switched to oral dosing. Continue metoprolol. Heparin drip has been switched to Eliquis. Telemetry (5) Hypothyroidism: He appears to have thyrotoxicosis from excessive oral thyroid intake. Thyroid replacement therapy is currently on hold and will be decreased at the time of discharge. (6) Rheumatoid arthritis: Stable. Continue current medical management Plan Home today, June 02 Admission HPI Per Admitting Provider 65-year-old white male with gradual onset of shortness of breath with exertion and orthopnea. He underwent cardiac echo on an outpatient basis and was seen to have left ventricular systolic dysfunction along with congestive heart failure and sent to the hospital for admission. He denies chest pain. EKG reveals no acute changes. BNP is elevated and initial troponin is mildly elevated. IV Lasix has been started and he is admitted for further evaluation and treatment along with cardiology evaluation. Discharge Exam General-alert and oriented x3, no fever, no chills HEENT-head atraumatic and normocephalic, pupils equal and reactive to light, extraocular muscles intact Neck-no lymphadenopathy or thyromegaly, trachea midline Chest-bibasilar inspiratory rales have resolved. No wheezing. No rhonchi. Cardiac-irregular rhythm. Controlled rate. Normal S1 and S2 Abdomen-normal bowel sounds, no hepatosplenomegaly Extremities-no cyanosis, clubbing, or edema. Pressure dressing on the right radial artery wrist site intact with hemostasis Neuro-cranial nerves II through XII intact, motor and sensory function within normal limits, strength symmetrical, no focal deficits Psych-normal affect, normal mood Discharge Plan Discharge Items Patient Disposition: Home - Self-Care Reason For Visit: CHF, LV DYSFUNCTION Discharge Diagnosis: Acute on chronic systolic congestive heart failure, ischemic cardiomyopathy without acute coronary syndrome, medication induced thyrotoxicosis Condition on Discharge: Good Activity: Per Instructions section Activity Comment: Avoid overexertion until cleared by cardiology Non-emergency contact: Primary Care Provider and Gear Finisher Call non-emergency contact if: you have any medication questions and your symptoms worsen Follow-up/Referrals: Trisha Horvath MD [Primary Care Provider] - Diet: Regular and Heart Healthy Addtl Attending Provider Instructions: New medications include amiodarone, metoprolol, clopidogrel, Eliquis, and Lasix. Thyroid dosage has been decreased. Stay off thyroid medication for 1 more week. Thyroid levels will need to be rechecked at a later date by the PCP. Prescriptions have been sent to [facility] pharmacy in [place]. See the epic prelude analyst as soon as possible for follow-up Pending Studies at Discharge: No Stand-Alone Forms: My [facility] [employer], Work/School Release, Smoking Cessation Medications and DC Order Prescriptions: New furosemide 40 mg Tablet 40 mg PO QAM Qty: 30 0RF amiodarone 200 mg Tablet 200 mg PO BIDM Qty: 60 0RF metoprolol succinate 25 mg Tablet Extended Release 24 Hr 25 mg PO QAM Qty: 30 0RF Eliquis 5 mg Tablet 5 mg PO BID Qty: 60 0RF levothyroxine 100 mcg capsule 100 mcg PO DAILY Qty: 30 0RF clopidogrel [Plavix] 75 mg tablet 75 mg PO DAILY Qty: 30 0RF Continued acetaminophen [Tylenol Extra Strength] 500 mg Tablet 1,500 mg PO DIRECTED PRN (Reason: Pain) ginkgo biloba [Ginkoba] 40 mg Tablet 40 mg PO DAILY Rx Instructions: give with meal/snack turmeric 400 mg Capsule 400 mg PO DAILY celecoxib 200 mg capsule 200 mg PO DAILY albuterol sulfate 2.5 mg /3 mL (0.083 %) solution for nebulization 2.5 mg inhalation DIRECTED PRN (Reason: Shortness Of Breath Or Wheezing) levothyroxine 25 mcg tablet 25 mcg PO DAILYBB Rx Instructions: TOTAL DOSE 325 MCG--TAKES WITH 3-100 MCG TABS. levothyroxine 100 mcg tablet 300 mcg PO DAILYBB Rx Instructions: TOTAL DOSE 325 MCG--TAKES WITH 25 MCG TAB. methotrexate sodium 2.5 mg tablet 17.5 mg PO WK Rx Instructions: SUNDAYS folic acid 1 mg tablet 2 mg PO DAILY Discontinued furosemide 20 mg tablet 20 mg PO DAILY Discharge Orders: Discharge Order- CHF (Routine); Ordered 06/02/25 Ordered By: Dung Keating Admission Data Admit Date/Time: 05/30/25 18:48 Attending Provider: Dung Keating Admit Provider: Dung Keating Primary Care Provider: Trisha Horvath Other Providers: Dung Keating; Deborah Resendiz; Bandar Mon Hospital Stay Data Consultations 05/30/25 18:05 ED Decision to Admit Stat 05/30/25 21:45 Consult Cardiology Routine 05/31/25 08:56 Consult Cardiac Catheterization Routine Procedures Performed Operation Date: 06/01/25 11:00 Actual Procedures p Cineradiography w/Routine Exam - Bandar Mon MD, PhD p Cath, Coronaries ONLY (no LV) - Bandar Mon MD, PhD s Drug Eluting Stent SGl Vessel - Bandar Mon MD, PhD Diagnostic Imagining Performed 05/31/25 16:07 CL Cath Imgs for PACS use only Routine 06/01/25 16:07 CL Cath Imgs for PACS use only Routine Pending Results Patient Have Any Pending Studies at Discharge: No Discharge Instructions Given to Patient (Per Discharging Provider) New medications include amiodarone, metoprolol, clopidogrel, Eliquis, and Lasix. Thyroid dosage has been decreased. Stay off thyroid medication for 1 more week. Thyroid levels will need to be rechecked at a later date by the PCP. Prescriptions have been sent to [facility] pharmacy in [place]. See the epic prelude analyst as soon as possible for follow-up Total Time Total Time Spent Total Time Spent (In Minutes): 45 minutes Coding Level of Care Code 56523 INP/OBS DISCH >30 MIN Diagnoses Acute systolic CHF (congestive heart failure) I50.21 Left ventricular dysfunction I51.9 Troponin level elevated R79.89 Paroxysmal atrial fibrillation I48.0 Hypothyroidism E03.9 Rheumatoid arthritis M06.9
== END 2025-06-02 14:28 | disposition home or self-care (01) | DRG 322 ==
LOC: SUATTDRO → ED 16:24 → 2S 18:48
PROC: CLB.CCO (2025-06-01 11:00)